=== PATIENT | male | born 1955 | race Caucasian/White ===

== ENCOUNTER → 2021-07-23 08:34 | Outpatient (CLI) | payer MEDICARE, OTHER, SELFPAY ==
[2021-07-24 20:55] LABS: SARS-CoV-2 RNA PCR Positive
== END ==
PROVIDERS: PCP Internal Medicine; Visit Provider Internal Medicine
DX: U07.1 COVID-19 (principal)
CPT/HCPCS: C9803; U0003; U0005

== ENCOUNTER 2022-09-03 09:01 | Outpatient (CLI) | payer MEDICARE, OTHER, SELFPAY ==
--- NOTE | ~2022-09-03 | XR_ITS ---
EXAMINATION: XR lumbar spine 6V w bending DATE: 09/03/2022 09:31 INDICATION: Lumbar radiculopathy TECHNIQUE: Anteroposterior, lateral in neutral, flexion and extension, and bilateral oblique views of the lumbar spine, and cone-down lateral view of the lumbosacral junction were obtained. COMPARISON: None. FINDINGS: There are 3 mm of anterolisthesis of L4 on L5. No hypermobility is present with flexion or extension. There is no fracture. The vertebral body heights are normal. There is moderate loss of int ervertebral disc space height at L5-S1. There is moderate facet joint osteoarthritis of the lower lum bar spine. Small degenerative osteophytes project from the anterior endplates of multiple vertebral b odies. Calcified atherosclerosis is noted. IMPRESSION: 1. Moderate lumbar spondylosis without acute findings. Reviewed, dictated and finalized at location A. TIENT CODER
== END 2022-09-03 09:02 | disposition home or self-care (01) ==
PROVIDERS: PCP Internal Medicine; Visit Provider Physician Assistant
DX: M47.26 Other spondylosis with radiculopathy, lumbar region (principal)
CPT/HCPCS: 72114

== ENCOUNTER 2022-10-05 15:35 | Outpatient (CLI) | payer MEDICARE, OTHER, SELFPAY ==
--- NOTE | ~2022-10-05 | XR_ITS ---
XR abdomen/kub 1V DATE: 10/05/2022 16:16 INDICATION: Right lower quadrant and groin pain. Recent urinary tract infection. TECHNIQUE: AP projection, 2 views COMPARISON: 10/05/2022 CT abdomen pelvis FINDINGS: Numerous prostate calcifications are noted. Small lower pole left renal calcified calculus, confirmed on 10/05/[address] abdomen pelvis examination. The psoas shadows are intact. No visceromegaly is evident. No bowel obstruction or apparent intraperitoneal free air. Sternotomy wire suture. Lung bases appear clear. Severe degenerative disc disease at L5-S1 IMPRESSION: Small nonobstructing lower pole left renal calculus Multiple prostate calcifications Status post sternotomy Reviewed, dictated and finalized at Location [facility]. Reviewed, dictated and finalized at location B.
--- NOTE | ~2022-10-05 | CT_ITS ---
EXAMINATION: CT abdomen pelvis wo con DATE: 10/05/2022 16:12 INDICATION: RLQ PAIN TECHNIQUE: Computed tomography (CT) of the abdomen and pelvis was performed without intravenous contr ast. Automated exposure control and iterative reconstruction technique were employed. The dose-length product was 1200.83 mGy-cm. COMPARISON: None. FINDINGS: Lower thorax: Coronary artery calcification. Minimal dependent atelectasis. Liver: Normal. Biliary/Gallbladder: Partially contracted but otherwise normal. No bile duct dilation. Pancreas: Mild fatty infiltration. Spleen: Normal. Adrenals:No mass. Kidneys: No mass, stone, or hydronephrosis. GI tract: Small hiatal hernia. No small or large bowel dilation. Normal appendix. Minimal diverticulo sis, without diverticulitis. Mesentery/Peritoneum: No ascites, mass, or free air. Mild edema in the upper small bowel mesentery, w ith prominent lymph nodes. Retroperitoneum: No mass. Atherosclerotic abdominal aortic and/or arterial calcifications. Pelvis: Distended urinary bladder, with wall thickening and inflammatory change. Mild prostatomegaly with prostate calcifications.. Soft Tissues: Small uncomplicated fat-containing left inguinal and umbilical hernias. Bones: No acute osseous finding. Severe degenerative disc disease at L5-S1. IMPRESSION: Mild/early mesenteric panniculitis. Left nephrolithiasis. Cystitis versus outlet compromise from pros tatomegaly, correlate with urinalysis. Reviewed, dictated and finalized at [facility]. IMPRESSION: Mild/early mesenteric panniculitis. Left nephrolithiasis. Cystitis versus outle t compromise from prostatomegaly, correlate with urinalysis.
== END 2022-10-05 15:36 | disposition home or self-care (01) ==
LOC: ANHIMG 15:40
PROVIDERS: PCP Internal Medicine; Visit Provider Nurse Practitioner Adult Health
DX: N20.0 Calculus of kidney (principal); K65.4 Sclerosing mesenteritis; N40.1 Benign prostatic hyperplasia with lower urinary tract symptoms
CPT/HCPCS: 74018; 74176

== ENCOUNTER 2022-11-30 11:18 | Outpatient (CLI) | payer MEDICARE, OTHER, SELFPAY ==
[2022-11-30 12:10] LABS: SARS-CoV-2 RNA PCR Positive (Negative)
== END 2022-11-30 11:19 | disposition home or self-care (01) ==
PROVIDERS: PCP Internal Medicine; Visit Provider Internal Medicine
DX: U07.1 COVID-19 (principal)
CPT/HCPCS: 87635; U0005

== ENCOUNTER 2022-12-21 12:09 | Outpatient (CLI) | payer MEDICARE, OTHER, SELFPAY ==
[2022-12-21 12:50] LABS: Strep Group A RT-PCR NOT DETECTED (Negative)
== END 2022-12-21 12:10 | disposition home or self-care (01) ==
PROVIDERS: PCP Internal Medicine; Visit Provider Internal Medicine
DX: J02.9 Acute pharyngitis, unspecified (principal)
CPT/HCPCS: 87651

== ENCOUNTER 2022-12-24 07:00 | Outpatient (CLI) | payer MEDICARE, OTHER, SELFPAY ==
--- NOTE | ~2022-12-24 | CT_ITS ---
CT of the Abdomen and Pelvis: Indication: Abdominal pain, mesenteric panniculitis Technique: 2.5 mm axial scans were obtained through the abdomen and pelvis following intravenous adm inistration of 100 cc of Omnipaque 350. Dose reduction technique was used on this scan by utilizing a utomated exposure control and iterative reconstruction technique. The dose-length product (DLP) was 8 79.07 mGy-cm. COMPARISON: 10/05/2022 Findings: Scans through the lung bases are unremarkable. Probable diffuse fatty infiltration of liver noted. The spleen, pancreas, gallbladder, adrenals and r ight kidney are within normal limits. 4 mm nonobstructing left renal stone present. There are atheros clerotic calcifications of the aorta. No lymphadenopathy. No bowel obstruction or bowel wall thickening. Minimal haziness in the central mesentery is unchanged . Images through the pelvis were performed. Urinary bladder unremarkable. Prostate gland and seminal ve sicles are unremarkable. No ascites. Impression: Stable minimal haziness in the central mesentery. Probable diffuse fatty infiltration of liver. 4 mm nonobstructing left renal stone. Reviewed, dictated and finalized at location . Impression: Stable minimal haziness in the central mesentery. Probable diffuse fatty infiltration of liver. 4 mm nonobstructing left renal stone.
[2022-12-24 07:31] LABS: Estimated Glomerular Filt Rate > 60
== END 2022-12-24 07:01 | disposition home or self-care (01) ==
PROVIDERS: PCP Internal Medicine; Visit Provider Nurse Practitioner Family
DX: K65.4 Sclerosing mesenteritis (principal); N20.0 Calculus of kidney
CPT/HCPCS: 74177; Q9967

== ENCOUNTER 2024-06-10 16:10 | Emergency (ER) | payer MEDICARE, OTHER, SELFPAY ==
--- NOTE | ~2024-06-10 | XR_ITS ---
XR ankle LT min 3V DATE: 06/10/2024 16:49 INDICATION: Twisted ankle. Ankle and foot pain. TECHNIQUE: 4 views COMPARISON: None FINDINGS: There is mild osteoarthritis at the tibiotalar joint. Prominent plantar and posterior calcaneal enthesopathy. There is mild medial ankle soft tissue swelling. No fracture or dislocation of the ankle or disruptio n of the ankle mortise. No periosteal reaction or bone destruction. IMPRESSION: Mild medial ankle soft tissue swelling; no fracture or dislocation Mild tibiotalar osteoarthritis Reviewed, dictated and finalized at location A. VE WHEEL MAKER
--- NOTE | ~2024-06-10 | XR_ITS ---
XR foot LT min 3V DATE: 06/10/2024 16:49 INDICATION: Injury TECHNIQUE: 3 views COMPARISON: None FINDINGS: Prominent plantar and posterior calcaneal enthesopathy. No fracture, dislocation, periosteal reaction or bone destruction of the left foot is detected. IMPRESSION: No fracture or dislocation Prominent plantar and posterior calcaneal enthesopathy Reviewed, dictated and finalized at location A. EACH CONSULTANT
[2024-06-10 16:16] VITALS: BP 131/97; PULSE 74; RESP 16; O2SAT 99
--- NOTE | 2024-06-10 16:33 | ED.LOWEXIN ---
HPI - Extremity Injury (Lower) General Chief Complaint: Extremity Injury, Lower Stated Complaint: L foot injury Time Seen by Provider: 06/10/24 16:33 Source: patient Limitations: no limitations History of Present Illness HPI Narrative: 68 years old white male came to the ED by private car complaining of left foot and ankle pain, went into a hole while walking. He denies other injuries. Three days ago Related Data Home Medications Medication Instructions Recorded Confirmed furosemide 40 mg tablet 40 mg PO QAM 02/21/20 04/18/24 lisinopril 5 mg tablet 5 mg PO DAILY 02/21/20 04/18/24 metoprolol tartrate 25 mg tablet 25 mg PO BID 02/21/20 04/18/24 pantoprazole 20 mg tablet,delayed 20 mg PO QAM 02/21/20 04/18/24 release rosuvastatin 40 mg tablet 40 mg PO DAILY 02/21/20 04/18/24 Allergies Allergy/AdvReac Type Severity Reaction Status Date / Time shellfish derived Allergy Mild hives, rash Verified 04/18/24 07:10 Shrimp Allergy Mild hives, rash Uncoded 04/18/24 07:10 Review of Systems Review of Systems: All systems reviewed & are unremarkable except as noted in HPI and below PMFSH Past Medical History Medical History GERD (gastroesophageal reflux disease) HTN (hypertension) Mesenteric panniculitis Skin cancer Family History Family History Father Family history of lung cancer Sibling Family history of malignant neoplasm of breast in first degree relative Social History Social History Smoking status: Never smoker Second hand tobacco smoke exposure: No Alcohol intake: never Substance use type: marijuana Lack of Transportation: No Lack of Food: Never True Current Housing: I Have Housing Concerned About Future Housing: No Difficulty Paying Gas/Electric Bills: No Difficulty Paying for Meds: No Currently Unemployed: No Education: High School Diploma/GED Difficulty w/ Childcare or Family Care: No Exam Narrative: General appearance: Well-developed, well-nourished Skin: Normal color Chest and respiratory: Airway patent, no respiratory distress, no accessory muscle use Heart: Regular rate/rhythmVascular: Normal peripheral pulses, normal capillary refill. Musculoskeletal: Mild medial malleolar last tenderness, slightly swelling, no deformity, slight limited range of motion because of pain foot exam was unremarkable Neurologic: Alert and oriented ?3, [employer]ANT is normal as tested, no gross motor deficit Course Vital Signs Vital signs: Vital Signs Pulse Rate 74 06/10/24 16:16 Respiratory Rate 16 06/10/24 16:16 Blood Pressure 131/97 H 06/10/24 16:16 Pulse Oximetry 99 06/10/24 16:16 Pulse Rate 74 06/10/24 16:16 Respiratory Rate 16 06/10/24 16:16 Blood Pressure 131/97 H 06/10/24 16:16 Pulse Oximetry 99 06/10/24 16:16 MDM - Extremity Injury (Lower) MDM Narrative Medical decision making narrative: Patient twisted left foot/ankle 3 days ago Differential diagnosis includes strain/sprain versus fracture X-ray showed no acute osseous abnormality Differential Diagnosis Differential diagnosis: Likely other (As above) Imaging Data Radiologist's impression: Impressions Ankle X-Ray 06/10/24 16:52 IMPRESSION: Mild medial ankle soft tissue swelling; no fracture or dislocation Mild tibiotalar osteoarthritis Foot X-Ray 06/10/24 16:54 IMPRESSION: No fracture or dislocation Prominent plantar and posterior calcaneal enthesopathy Critical Care Time Critical Care Time Critical Care Time: No Discharge Plan Discharge Clinical Impression: Left ankle sprain Patient Disposition: Home, Self-Care Condition: Stable Instructions: Ankle Sprain (DC), Ankle Stirrup Splint (ED) Additional Instructions: Return if symptoms are worsening , call your family physician for appointment, take Tylenol as as needed for aches and pain, continue home medications. Keep her weight off left foot Keep foot elevated Crutches as needed Ibuprofen 600 every 6 hours as needed Prescriptions: No Action trazodone 50 mg tablet 50 mg PO QHS PRN (Reason: sleep) Qty: 30 2RF furosemide 40 mg tablet 40 mg PO QAM lisinopril 5 mg tablet 5 mg PO DAILY metoprolol tartrate 25 mg tablet 25 mg PO BID pantoprazole 20 mg tablet,delayed release (DR/EC) 20 mg PO QAM rosuvastatin 40 mg tablet 40 mg PO DAILY sildenafil 50 mg tablet 50 mg PO DAILY PRN (Reason: sexual activity) Qty: 9 0RF Rx Instructions: administer 30 minutes to 4 hours before activity cyclobenzaprine 10 mg tablet 10 mg PO .HS PRN (Reason: muscle spasm) Qty: 30 0RF venlafaxine 37.5 mg capsule,extended release 24hr 37.5 mg PO DAILY Qty: 90 1RF clopidogrel 75 mg tablet See Rx Instructions .ROUTE .COMPLEX Qty: 90 1RF Dose Instruction: TAKE 1 TABLET BY MOUTH DAILY Rx Instructions: TAKE 1 TABLET BY MOUTH DAILY metronidazole 500 mg tablet 500 mg PO Q8H Qty: 30 0RF Follow-up/Referrals: Zeke Luna DO [Primary Care Provider] -
== END 2024-06-10 17:41 | disposition home or self-care (01) ==
PROVIDERS: Emergency Provider Emergency Medicine; PCP Internal Medicine
DX: S93.402A Sprain of unspecified ligament of left ankle, initial encounter (principal); I10 Essential (primary) hypertension; K21.9 Gastro-esophageal reflux disease without esophagitis; Z85.828 Personal history of other malignant neoplasm of skin; Z79.899 Other long term (current) drug therapy; Z79.02 Long term (current) use of antithrombotics/antiplatelets; M19.072 Primary osteoarthritis, left ankle and foot; M77.32 Calcaneal spur, left foot; M77.52 Other enthesopathy of left foot and ankle; X50.9XXA Other and unspecified overexertion or strenuous movements or postures, initial encounter
CPT/HCPCS: 29515; 73610; 73630; 99283

== ENCOUNTER 2024-11-07 09:22 | Emergency (ER) | payer MEDICARE, OTHER, SELFPAY ==
[2024-11-07 09:30] VITALS: BP 145/81; PULSE 76; RESP 16; TEMP 36.4; O2SAT 100
--- NOTE | 2024-11-07 09:49 | ED_ITS ---
HPI - General Adult General Chief complaint: Urogenital-Male Stated complaint: Uti Symptoms Source: patient Mode of arrival: ambulatory Limitations: no limitations History of Present Illness HPI narrative: Pt presents for evaluation of urinary symptoms for the past two days. He reports dysuria, urinary frequency, and hesitancy. He has a history of urethral stricture and self-caths twice per week. He has a history of UTI's. He denies Any fever, chills, abdominal pain, low back pain, urethral drainage. He is in a monogamous relationship with his . Related Data Home Medications ?Medication ?Instructions ?Recorded ?Confirmed ?Last Taken ?Type furosemide 40 mg tablet 40 mg PO QAM 02/21/20 04/18/24 Unknown History lisinopril 5 mg tablet 5 mg PO DAILY 02/21/20 04/18/24 Unknown History metoprolol tartrate 25 mg tablet 25 mg PO BID 02/21/20 04/18/24 Unknown History pantoprazole 20 mg tablet,delayed 20 mg PO QAM 02/21/20 04/18/24 Unknown History release rosuvastatin 40 mg tablet 40 mg PO DAILY 02/21/20 04/18/24 Unknown History ezetimibe 10 mg tablet mg 11/07/24 Unknown History Allergies Allergy/AdvReac Type Severity Reaction Status Date / Time shellfish derived Allergy Mild hives, rash Verified 11/07/24 09:34 Shrimp Allergy Mild hives, rash Uncoded 11/07/24 09:34 Review of Systems Review of Systems: CONSTITUTIONAL: Denies fever, chills, or sweats. EYES: Denies visual changes, redness, or discharge. ENT: Denies rhinorrhea, congestion, sore throat, or otalgia. CARDIOVASCULAR: Denies chest pain, palpitations, or edema. RESPIRATORY: Denies cough or dyspnea. GASTROINTESTINAL: Denies abdominal pain, nausea, vomiting, or diarrhea. GENITOURINARY: reports urinary frequency, hesitancy, and dysuria. denies urethral drainage. SKIN: Denies rash or itching. MUSCULOSKELETAL: Denies back pain, joint pain, or myalgia. NEUROLOGIC: Denies headache, numbness, dizziness, or weakness. PSYCHIATRIC: Denies anxiety or depression. [facility]LY [facility], [facility] Past Medical History Medical History GERD (gastroesophageal reflux disease) Mesenteric panniculitis HTN (hypertension) Skin cancer Surgical History Surgical History No pertinent past surgical history Family History Family History Father Family history of lung cancer Sibling Family history of malignant neoplasm of breast in first degree relative Social History Social History Smoking status: Never smoker Second hand tobacco smoke exposure: No Alcohol intake: never Substance use type: marijuana Lack of Transportation: No Lack of Food: Never True Current Housing: I Have Housing Concerned About Future Housing: No Difficulty Paying Gas/Electric Bills: No Difficulty Paying for Meds: No Currently Unemployed: No Education: High School Diploma/GED Difficulty w/ Childcare or Family Care: No Exam Narrative: GENERAL: Well-appearing, well-nourished, and in no acute distress. HEAD: Normocephalic, atraumatic. EYES: PERRLA and EOMI. ENT: Nares clear, no rhinorrhea or epistaxis. Mucous membranes moist. Oropharynx without tonsillar hypertrophy exudate or other lesions. Bilateral TMs pearly mayberry nonbulging NECK: Supple. No adenopathy or masses. No carotid bruits or JVD CHEST: Clear to auscultation. No respiratory distress. No wheezes rales or rhonchi HEART: Regular rate and rhythm. No murmur heard. Normal peripheral pulses. ABDOMEN: Soft, nontender, nondistended, normal active bowel sounds. EXTREMITIES: Normal range of motion. No edema. SKIN: Warm, dry, no rash. NEURO: No focal deficits. Alert and oriented x3. PSYCH: Normal mood and affect. Course Course Emergency Course: This is a 69-year-old male who presented for evaluation of urinary symptoms. Urine today leukocyte positive. Will treat with Bactrim and Pyridium. Follow up with primary provider. Go to the ER for worsening symptoms. Patient in agreement with plan of care. Level of Care: Express Care Visit Vital Signs Vital signs: Vital Signs Temperature 36.4 C L 11/07/24 09:30 Pulse Rate 76 11/07/24 09:30 Respiratory Rate 16 11/07/24 09:30 Blood Pressure 145/81 H 11/07/24 09:30 Pulse Oximetry 100 11/07/24 09:30 Temperature 36.4 C L 11/07/24 09:30 Pulse Rate 76 11/07/24 09:30 Respiratory Rate 16 11/07/24 09:30 Blood Pressure 145/81 H 11/07/24 09:30 Pulse Oximetry 100 11/07/24 09:30 Medical Decision Making Vital Signs Vital Signs: Vital Signs Temperature 36.4 C L 11/07/24 09:30 Pulse Rate 76 11/07/24 09:30 Respiratory Rate 16 11/07/24 09:30 Blood Pressure 145/81 H 11/07/24 09:30 Pulse Oximetry 100 11/07/24 09:30 Temperature 36.4 C L 11/07/24 09:30 Pulse Rate 76 11/07/24 09:30 Respiratory Rate 16 11/07/24 09:30 Blood Pressure 145/81 H 11/07/24 09:30 Pulse Oximetry 100 11/07/24 09:30 Discharge Plan Discharge Clinical Impression: Acute UTI Patient Disposition: Home Condition: Stable Instructions: Antibiotic Form, Urinary Tract Infection in Men (ED) Patient Language: Swedish Prescriptions: New sulfamethoxazole-trimethoprim [Bactrim DS] 800-160 mg tablet 1 tablet PO Q12H Qty: 14 0RF phenazopyridine [Pyridium] 200 mg tablet 200 mg PO TID Qty: 6 0RF No Action ezetimibe 10 mg tablet furosemide 40 mg tablet 40 mg PO QAM lisinopril 5 mg tablet 5 mg PO DAILY metoprolol tartrate 25 mg tablet 25 mg PO BID pantoprazole 20 mg tablet,delayed release (DR/EC) 20 mg PO QAM rosuvastatin 40 mg tablet 40 mg PO DAILY sildenafil 50 mg tablet 50 mg PO DAILY PRN (Reason: sexual activity) Qty: 9 0RF Rx Instructions: administer 30 minutes to 4 hours before activity trazodone 50 mg tablet See Rx Instructions .ROUTE .COMPLEX Qty: 90 1RF Dose Instruction: TAKE 1 TABLET BY MOUTH EVERY DAY AT BEDTIME NEEDED FOR SLEEP Rx Instructions: TAKE 1 TABLET BY MOUTH EVERY DAY AT BEDTIME NEEDED FOR SLEEP venlafaxine 37.5 mg capsule,extended release 24hr 37.5 mg PO DAILY Qty: 90 2RF clopidogrel 75 mg tablet See Rx Instructions .ROUTE .COMPLEX Qty: 90 1RF Dose Instruction: TAKE 1 TABLET BY MOUTH DAILY Rx Instructions: TAKE 1 TABLET BY MOUTH DAILY Follow-up/Referrals: Afia Rome MD [Physician] - Time of Disposition: 09:45
[2024-11-07 09:54] LABS: EDUAAPPEAR Cloudy; EDUABILI Negative (Negative); EDUABLOOD 1+ (Negative); EDUACOLOR1 Yellow; EDUAGLUCOSE Negative (Negative); EDUAKETONE Negative (Negative); EDUALEUKO 2+ (Negative); EDUANITRATE Negative (Negative); EDUAPH 6.5; EDUAPROTEIN 3+ (Negative); EDUAUROBILI 0.2
== END 2024-11-07 09:47 | disposition home or self-care (01) ==
PROVIDERS: Emergency Provider Nurse Practitioner
DX: N39.0 Urinary tract infection, site not specified (principal); I10 Essential (primary) hypertension; K21.9 Gastro-esophageal reflux disease without esophagitis; K65.4 Sclerosing mesenteritis; Z85.828 Personal history of other malignant neoplasm of skin
CPT/HCPCS: 81003; 87086; 99213; G0463